=== PATIENT | male | born 1970 | race Caucasian/White ===

== ENCOUNTER → 2024-10-04 14:15 | Outpatient (CLI) | payer OTHER, SELFPAY ==
--- NOTE | 2024-10-04 14:19 | DI.CT.S_ITS ---
PROCEDURE: CT CHEST WO CON INDICATIONS: THORACIC AORTA ECTASIA TECHNIQUE: Noncontrast 5 mm thick sections acquired from the pulmonary apices to the posterior costophrenic angles. 1 mm lung window, 5 mm thick coronal and sagittal and 7 mm axial MIP reformats were then acquired. For radiation dose reduction, the following was used: automated exposure control, adjustment of mA and/or kV according to patient size. COMPARISON: None. FINDINGS: Image quality: Diagnostic. Lower Neck: No enlarged lymph nodes. Thyroid: No thyroid nodules which require sonographic follow up, per consensus guidelines. Axillae: No enlarged lymph nodes. Chest Wall: Unremarkable. Bones: Unremarkable. Lungs and Pleura: No pneumothorax or pleural effusions. No consolidation or suspicious nodules. Heart: Heart size is normal. No pericardial effusion. Thoracic Vessels: The aorta measures 2.7 cm in the descending thoracic aorta and 3.1 cm within the ascending thoracic aorta. Pulmonary arteries are normal in size. Mediastinum and Aura: No enlarged lymph nodes. Esophagus: No wall thickening. Mild hiatal hernia. Upper Abdomen: Simple hepatic cysts. IMPRESSION: No evidence thoracic aorta aneurysmal dilation. Dictated by: Gini Dowling M.D. on 10/04/2024 at 20:22 Approved by: Gini Dowling M.D. on 10/04/2024 at 20:24
== END ==
LOC: CT 14:19
PROVIDERS: Referring Provider Family Medicine; Visit Provider Family Medicine
DX: I77.810 Thoracic aortic ectasia (principal); K44.9 Diaphragmatic hernia without obstruction or gangrene; K76.89 Other specified diseases of liver
CPT/HCPCS: 71250